=== PATIENT | male | born 1955 ===

== ENCOUNTER 2018-09-07 15:53 | Inpatient (IN) ==
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
[2018-09-07 16:41] LABS: Baso % (Auto) 0.6 % (0.0-2.0); Eos % (Auto) 0.1 % (0.0-4.0); Hematocrit 44.9 % (39.0-51.0); Hemoglobin 16.3 gm/dL (13.0-17.0); Lymph # (Auto) 0.5 th/mm3 (1.0-4.8); Lymph % (Auto) 5.9 % (9.0-44.0); Mean Corpuscular Hemoglobin 33.2 pg (27.0-34.0); Mean Corpuscular Volume 91.1 fL (80.0-100.0); Mean Platelet Volume 8.1 fL (7.0-11.0); Mono # (Auto) 0.5 th/mm3 (0.0-0.9); Mono % (Auto) 6.7 % (0.0-8.0); Neut # (Auto) 6.9 th/mm3 (1.8-7.7); Neut % (Auto) 86.7 % (16.0-70.0); Platelet Count 180 th/mm3 (150-450); Red Blood Count 4.92 mil/mm3 (4.50-5.90); Red Cell Distribution Width 13.2 % (11.6-17.2); White Blood Count 7.9 th/mm3 (4.0-11.0)
[2018-09-07 16:46] LABS: Mean Corpuscular HGB Conc 36.4 % (32.0-36.0)
[2018-09-07 16:56] LABS: Activated Partial Thrombo Time 22.6 sec (23.4-31.7); INR 1.1 Ratio; Prothrombin Time 10.8 sec (9.8-11.6)
[2018-09-07] MEDS ORDERED: Post-op Orders (for Pharmacy) OTHER ONE (17:34)
[2018-09-07] MEDS ORDERED: Naloxone Inj 0.4 MG/ML Vial IV.PUSH PRN (17:34)
[2018-09-07] MEDS ORDERED: Bisacodyl 10 MG Supp RECTAL PRN (17:34)
[2018-09-07] MEDS ORDERED: HYDROmorphone PF Inj 1 MG/ML Ampul IV.PUSH PRN (17:34)
[2018-09-07] MEDS ORDERED: *Meperidine Inj 25 MG/ML Vial PERIprocedural Use ONLY ONE (17:36)
[2018-09-07] MEDS ORDERED: Morphine Inj 4 MG/ML Vial ONE (17:43)
[2018-09-07] MEDS ORDERED: fentaNYL Citrate Inj 100 MCG/2 ML Ampul ONE (17:43)
[2018-09-07] MEDS ORDERED: Morphine Inj 4 MG/ML Vial IV.PUSH ONE (18:03)
[2018-09-07] MEDS ORDERED: Ciprofloxacin 400 MG/200 ML 400 MG/200 ML PIGGYBACK IV.SIG ONE (18:15)
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
[2018-09-07] MEDS: Sod Chloride 0.9% Inj 1,000 ML IV.CONT SCH (18:31)
[2018-09-07] MEDS ORDERED: Influenza (Quadrivalent) Vaccine 0.5 ML Syringe IM ONE (18:45)
[2018-09-07] MEDS: Famotidine 20 MG Tablet PO SCH (22:06)
[2018-09-07] MEDS: Senna/Docusate Sodium 8.6/50 MG Tablet PO SCH (22:06)
[2018-09-08] MEDS: ceFAZolin Inj 1,000 MG in Sodium Chlor 0.9% Inj 100 ML IV.SIG SCH ×2 (03:20)
[2018-09-08] MEDS: Sod Chloride 0.9% Inj 1,000 ML IV.CONT SCH ×2 (03:21→13:09)
[2018-09-08] MEDS ORDERED: ceFAZolin 1 GM Premix Inj 1 GM/50 ML PIGGYBACK IV.SIG SCH (04:00)
[2018-09-08] MEDS ORDERED: Acetaminophen 325 MG Tablet PO PRN (06:02)
[2018-09-08 06:22] LABS: Baso % (Auto) 0.3 % (0.0-2.0); Eos % (Auto) 0.3 % (0.0-4.0); Hematocrit 42.4 % (39.0-51.0); Hemoglobin 14.7 gm/dL (13.0-17.0); Lymph # (Auto) 0.8 th/mm3 (1.0-4.8); Lymph % (Auto) 9.2 % (9.0-44.0); Mean Corpuscular HGB Conc 34.6 % (32.0-36.0); Mean Corpuscular Hemoglobin 31.5 pg (27.0-34.0); Mean Corpuscular Volume 91.1 fL (80.0-100.0); Mean Platelet Volume 8.1 fL (7.0-11.0); Mono # (Auto) 0.7 th/mm3 (0.0-0.9); Mono % (Auto) 8.5 % (0.0-8.0); Neut # (Auto) 6.8 th/mm3 (1.8-7.7); Neut % (Auto) 81.7 % (16.0-70.0); Platelet Count 157 th/mm3 (150-450); Red Blood Count 4.65 mil/mm3 (4.50-5.90); Red Cell Distribution Width 13.2 % (11.6-17.2); White Blood Count 8.3 th/mm3 (4.0-11.0)
[2018-09-08 06:35] LABS: Calcium 8.1 mg/dL (8.5-10.1); Carbon Dioxide 26.8 meq/L (21.0-32.0); Potassium 3.9 meq/L (3.5-5.1)
[2018-09-08] MEDS ORDERED: Venlafaxine XR 75 MG Capsule PO SCH (09:00)
[2018-09-08] MEDS ORDERED: levETIRAcetam 500 MG Tablet PO SCH (09:00)
[2018-09-08] MEDS: Senna/Docusate Sodium 8.6/50 MG Tablet PO SCH ×2 (09:02→20:52)
[2018-09-08] MEDS: Famotidine 20 MG Tablet PO SCH ×2 (09:02→20:49)
[2018-09-08] MEDS: ceFAZolin 1 GM Premix Inj 1 GM/50 ML PIGGYBACK IV.SIG SCH ×2 (09:08→17:07)
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
[2018-09-08] MEDS: Enoxaparin Inj 40 MG/0.4 ML Syringe SQ SCH (18:36)
[2018-09-09 04:25] LABS: Baso % (Auto) 0.3 % (0.0-2.0); Eos % (Auto) 0.4 % (0.0-4.0); Hematocrit 42.5 % (39.0-51.0); Hemoglobin 15.2 gm/dL (13.0-17.0); Lymph # (Auto) 0.8 th/mm3 (1.0-4.8); Lymph % (Auto) 10.1 % (9.0-44.0); Mean Corpuscular HGB Conc 35.7 % (32.0-36.0); Mean Corpuscular Hemoglobin 32.2 pg (27.0-34.0); Mean Platelet Volume 7.8 fL (7.0-11.0); Mono # (Auto) 0.6 th/mm3 (0.0-0.9); Mono % (Auto) 7.9 % (0.0-8.0); Neut # (Auto) 6.3 th/mm3 (1.8-7.7); Neut % (Auto) 81.3 % (16.0-70.0); Platelet Count 139 th/mm3 (150-450); Red Blood Count 4.72 mil/mm3 (4.50-5.90); Red Cell Distribution Width 13.1 % (11.6-17.2); White Blood Count 7.7 th/mm3 (4.0-11.0)
[2018-09-09 04:51] LABS: Anion Gap 7 meq/L (5-15); Blood Urea Nitrogen 7 mg/dL (7-18); Calcium 8.5 mg/dL (8.5-10.1); Carbon Dioxide 26.6 meq/L (21.0-32.0); Chloride 103 meq/L (98-107); Glomerular Filtration Rate Greater Than 89 mL/min (>89); Glucose,Random 137 mg/dL (74-106); Potassium 3.4 meq/L (3.5-5.1); Sodium 137 meq/L (136-145)
[2018-09-09 08:44] VITALS: BP 185/109; PULSE 83; RESP 18; TEMP 97.9
[2018-09-09] MEDS: Famotidine 20 MG Tablet PO SCH (08:53)
[2018-09-09] MEDS: Enoxaparin Inj 40 MG/0.4 ML Syringe SQ SCH (08:53)
[2018-09-09] MEDS: Senna/Docusate Sodium 8.6/50 MG Tablet PO SCH (08:53)
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
[2018-09-09 12:37] VITALS: O2SAT 97
[2018-09-09] MEDS ORDERED: levETIRAcetam 500 MG Tablet PO SCH (21:00)
[2018-09-09] MEDS ORDERED: Venlafaxine XR 75 MG Capsule PO SCH (21:00)
== END 2018-09-09 11:41 | DRG 357 ==
LOC: NEPI 15:53 → EDBD 17:23 → NEDA 17:23 → N07 18:20
PROVIDERS: ADMIT Surgery; ATTEND Surgery
CPT/HCPCS: 71010; 71045; 80048; 80307; 85025; 85610; 85730; 86850; 86900; 86901; 88300; 90471; 90658; 90686; 90774; 90784; 94150; 96374; 97162; 99285; 99291; C8952; G0008; G0390; J0690; J1650; J2175; J2270; J3010; J7030; Q2038

== ENCOUNTER 2018-09-09 11:55 | Inpatient (IN) ==
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
[2018-09-09] MEDS: Metoprolol Tartrate 25 MG Tablet PO SCH (20:34)
[2018-09-09] MEDS: Senna/Docusate Sodium 8.6/50 MG Tablet PO SCH (20:35)
[2018-09-10 07:43] LABS: Calcium 9.7 mg/dL (8.5-10.1); Carbon Dioxide 29.6 meq/L (21.0-32.0); Potassium 3.7 meq/L (3.5-5.1)
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
[2018-09-10] MEDS: Metoprolol Tartrate 25 MG Tablet PO SCH ×2 (08:27→21:18)
[2018-09-10] MEDS: amLODIPine 5 MG Tablet PO SCH (08:27)
[2018-09-10] MEDS: Senna/Docusate Sodium 8.6/50 MG Tablet PO SCH ×2 (09:10→21:18)
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
[2018-09-10] MEDS: levETIRAcetam 500 MG Tablet PO SCH ×2 (12:00→21:18)
[2018-09-10] MEDS: Venlafaxine XR 75 MG Capsule PO SCH (12:00)
--- NOTE | 2018-09-10 20:28 | ECG ---
Date Performed: 09/10/2018 Time Performed: 09:26:17 PTAGE: 63 years EKG: Sinus rhythm WITH OCCASIONAL SUPRAVENTRICULAR PREMATURE COMPLEXES POSSIBLE INFERIOR MYOCARDIAL INFARCTION , PROBA RASHAD OLD BORDERLINE ECG NO PREVIOUS TRACING DOCTOR: Sukhjinder Aguilera Interpretating Date/Time 09/10/2018 20:25:32
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
[2018-09-11] MEDS: Senna/Docusate Sodium 8.6/50 MG Tablet PO SCH ×2 (08:45→20:28)
[2018-09-11] MEDS: Acetaminophen 325 MG Tablet PO PRN ×3 (08:45→21:29)
[2018-09-11] MEDS: levETIRAcetam 500 MG Tablet PO SCH ×2 (08:45→20:28)
[2018-09-11] MEDS: Venlafaxine XR 75 MG Capsule PO SCH ×2 (08:45→20:28)
[2018-09-11] MEDS: amLODIPine 5 MG Tablet PO SCH (11:26)
--- NOTE | 2018-09-11 18:35 | P.PNPSY ---
Subjective Remarks: Reviewed electronic medical records and discussed case with staff. Follow-up was conducted in the patient's room with ARCHIE Pendleton present. His nurse reports that he has been anxious and guarded as well as a bit labile today. When asked how he is feeling the patient's reports that he is "doing great". He states that he is sleeping and eating well and that his mood is "pretty good". He denies side effects from the medication. His is at the bedside is very verbally aggressive with his provider questioning why she has not been contacted for information and demanding that his medications be changed to the evening. After some discussion I have agreed to move his medications to before bedtime per her request. This seemed to mollify her somewhat. She is requesting to be contacted by the attending psychiatrist via phone on Thursday. Mental Status Examination Appearance: Appropriate Consciousness: Alert Orientation: Person, Place, Date/Time Motor Activity: Normal gait Speech: Unremarkable Language: Adequate Fund of Knowledge: Inadequate Attention and Concentration: Easily distracted Memory: Impaired Mood: Sad, Other (Dysphoric) Affect: Sad, Other (Tearful) Thought Process & Associations: Intact, Linear Thought Content: Appropriate Hallucination Type: None Delusion Type: None Suicidal Ideation: No (Denies but unreliable to contract for safety at this time ) Suicidal Plan: No Suicidal Intention: No Homicidal Ideation: No Homicidal Plan: No Homicidal Intention: No Insight: Fair Judgment: Impulsive Assessment and Plan - Assessment (1) Major depressive disorder Code(s): F32.9 - Major depressive disorder, single episode, unspecified Status : Acute - Plan Plan: Patient will be reevaluated by the attending psychiatrist. Continue with current treatment plan. Justification for Continued Inpatient Stay: Moving this patient to a less restrictive environment would likely result in decompensation.
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
[2018-09-12] MEDS: Senna/Docusate Sodium 8.6/50 MG Tablet PO SCH ×2 (08:30→21:44)
[2018-09-12] MEDS: Acetaminophen 325 MG Tablet PO PRN (08:43)
[2018-09-12] MEDS: levETIRAcetam 500 MG Tablet PO SCH ×2 (08:53→21:44)
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
--- NOTE | 2018-09-12 20:01 | P.PNPSY ---
Subjective Remarks: Reviewed electronic medical records and discussed case with staff. Follow-up was conducted in patient's room with ARCHIE Pendleton present. Patient's is present at bedside. Asked how he is feeling today he responds "great". States that he slept well and that he is "never had a problem meeting". His mood is euthymic. His nurse did report that earlier he had an episode where he was observed having tremors of his body however, he was alert throughout the incident and there was no postictal period nor incontinence. When asked what it occurred he attributed it to being in pain. No more such episodes were witnessed by the nurse. Mental Status Examination Appearance: Appropriate Consciousness: Alert Orientation: Person, Place, Date/Time Motor Activity: Normal gait Speech: Unremarkable Language: Adequate Fund of Knowledge: Inadequate Attention and Concentration: Easily distracted Memory: Impaired Mood: Sad, Other (Dysphoric) Affect: Sad, Other (Tearful) Thought Process & Associations: Intact, Linear Thought Content: Appropriate Hallucination Type: None Delusion Type: None Suicidal Ideation: No (Denies but unreliable to contract for safety at this time ) Suicidal Plan: No Suicidal Intention: No Homicidal Ideation: No Homicidal Plan: No Homicidal Intention: No Insight: Fair Judgment: Impulsive Assessment and Plan - Assessment (1) Major depressive disorder Code(s): F32.9 - Major depressive disorder, single episode, unspecified Status : Acute - Plan Plan: Patient will be reevaluated by the attending psychiatrist. Continue with current treatment plan. Justification for Continued Inpatient Stay: Moving this patient to a less restrictive environment would likely result in decompensation.
[2018-09-12] MEDS: Venlafaxine XR 75 MG Capsule PO SCH (21:44)
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
[2018-09-13] MEDS: Senna/Docusate Sodium 8.6/50 MG Tablet PO SCH ×2 (08:33→22:08)
[2018-09-13] MEDS: levETIRAcetam 500 MG Tablet PO SCH ×2 (08:33→22:09)
[2018-09-13] MEDS: Acetaminophen 325 MG Tablet PO PRN ×2 (08:33→16:23)
[2018-09-13] MEDS: Aluminum/Magnesium/Simethacone Susp 30 ML UDC PO PRN (08:40)
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
[2018-09-13] MEDS: Venlafaxine XR 75 MG Capsule PO SCH (22:08)
[2018-09-14] MEDS: levETIRAcetam 500 MG Tablet PO SCH ×2 (08:20→21:45)
[2018-09-14] MEDS: Senna/Docusate Sodium 8.6/50 MG Tablet PO SCH ×2 (08:20→21:45)
[2018-09-14 09:04] LABS: Baso % (Auto) 0.6 % (0.0-2.0); Eos # (Auto) 0.2 th/mm3 (0.0-0.4); Hematocrit 48.8 % (39.0-51.0); Hemoglobin 16.8 gm/dL (13.0-17.0); Lymph # (Auto) 1.4 th/mm3 (1.0-4.8); Lymph % (Auto) 23.2 % (9.0-44.0); Mean Corpuscular HGB Conc 34.3 % (32.0-36.0); Mean Corpuscular Hemoglobin 31.8 pg (27.0-34.0); Mean Corpuscular Volume 92.7 fL (80.0-100.0); Mean Platelet Volume 7.7 fL (7.0-11.0); Mono # (Auto) 0.5 th/mm3 (0.0-0.9); Neut # (Auto) 3.9 th/mm3 (1.8-7.7); Neut % (Auto) 65.2 % (16.0-70.0); Platelet Count 216 th/mm3 (150-450); Red Blood Count 5.27 mil/mm3 (4.50-5.90); Red Cell Distribution Width 13.3 % (11.6-17.2)
[2018-09-14 09:18] LABS: Calcium 9.4 mg/dL (8.5-10.1); Carbon Dioxide 27.9 meq/L (21.0-32.0); Potassium 3.9 meq/L (3.5-5.1)
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
--- NOTE | 2018-09-14 11:23 | MB ---
cc: Nazario Paulson MD DATE: 09/14/2018 CHIEF COMPLAINT: Attempted suicide, blank stares, dementia, seizures. Keppra. An 8 Hz, 60 microvolt symmetric posterior rhythm is seen. Some diffuse 7 Hz slowing is occasionally seen. A right foot twitch is seen, but does not correlate with any seizure activity. Overall, recording is synchronous and symmetric. Left hand twitch is seen, but does not correlate with any seizure activity. He appears to fall asleep with a slight body twitch. A vertex sharp wave is noted. Stage II sleep is reached, although just briefly and some slight twitches are seen in the feet, but do not correlate with any seizure activity. Then he is in a full stage II sleep by Epoch 67. Photic stimulation performed without significant posterior driving. Hyperventilation not performed. IMPRESSION: Normal awake and sleep electroencephalogram. No evidence for a focal or diffuse abnormality. A lot of twitching is seen of his feet, but they do not correlate with any seizure activity. Most of this recording is during sleep state clinically and he does reach normal stage II sleep. Nazario Paulson MD DJM/sv , 10:59 AM , 11:05 AM
[2018-09-14] MEDS: Aluminum/Magnesium/Simethacone Susp 30 ML UDC PO PRN (12:41)
[2018-09-14] MEDS: Acetaminophen 325 MG Tablet PO PRN ×2 (12:42→17:46)
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
[2018-09-14] MEDS: Venlafaxine XR 75 MG Capsule PO SCH (21:45)
[2018-09-15] MEDS: Senna/Docusate Sodium 8.6/50 MG Tablet PO SCH ×2 (08:12→20:42)
[2018-09-15] MEDS: levETIRAcetam 500 MG Tablet PO SCH ×2 (08:12→20:42)
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
--- NOTE | 2018-09-15 15:28 | P.TTN ---
- Patient Problems Problems: 1. Discharge planning 2. Medication compliance 3. Knowledge deficit 4. Lack of coping skills - Progress Toward Goals Provider Present: Dr. Lee Garcia Provider Input: 09/15/2018; patient's medication has recently been adjusted to address his mood/SI. Nurse(s) Present: RN Nurse Input: 09/15/2018; Patient is eating meals and taking his medication, continues to express some depression Psychiatric Counselors Present: Luma Raymundo [place] Psychiatric Therapist Input: 09/15/2018; counselor and doctor meet with patient' s family to discuss appropriate dc plan, treatment and medication Group Spec/RT/OT/HOLLIS Present: TELMA Galaviz Group Spec/RT/OT/HOLLIS Input: 09/15/2018; patient has been physically and mentally unable to participate with groups and activities - Documentation Teaching Recipient: Patient
[2018-09-15] MEDS: Venlafaxine XR 75 MG Capsule PO SCH (20:41)
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
[2018-09-16] MEDS: levETIRAcetam 500 MG Tablet PO SCH ×2 (08:15→21:00)
[2018-09-16] MEDS: Senna/Docusate Sodium 8.6/50 MG Tablet PO SCH ×2 (08:15→21:00)
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
[2018-09-16] MEDS: Venlafaxine XR 75 MG Capsule PO SCH (21:00)
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
[2018-09-17] MEDS: Senna/Docusate Sodium 8.6/50 MG Tablet PO SCH ×2 (08:33→20:47)
[2018-09-17] MEDS: levETIRAcetam 500 MG Tablet PO SCH ×2 (08:33→20:43)
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
[2018-09-17] MEDS: Venlafaxine XR 75 MG Capsule PO SCH (20:43)
[2018-09-18] MEDS: Senna/Docusate Sodium 8.6/50 MG Tablet PO SCH ×2 (09:03→21:36)
[2018-09-18] MEDS: levETIRAcetam 500 MG Tablet PO SCH ×2 (09:03→21:34)
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
[2018-09-18] MEDS: Venlafaxine XR 75 MG Capsule PO SCH (21:36)
[2018-09-19] MEDS: Senna/Docusate Sodium 8.6/50 MG Tablet PO SCH ×2 (08:13→21:44)
[2018-09-19] MEDS: levETIRAcetam 500 MG Tablet PO SCH ×2 (08:13→21:44)
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
[2018-09-19] MEDS: Clotrimazole 1% Cream 15 GM Tube TOPICAL SCH (21:43)
[2018-09-19] MEDS: Venlafaxine XR 75 MG Capsule PO SCH (22:28)
[2018-09-19] MEDS: Acetaminophen 325 MG Tablet PO PRN (22:32)
[2018-09-20 05:37] VITALS: BP 98/54; PULSE 59; RESP 17; TEMP 98.1; O2SAT 96
[2018-09-20] MEDS: Clotrimazole 1% Cream 15 GM Tube TOPICAL SCH (09:07)
[2018-09-20] MEDS: levETIRAcetam 500 MG Tablet PO SCH (09:07)
[2018-09-20] MEDS: Senna/Docusate Sodium 8.6/50 MG Tablet PO SCH (09:07)
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
== END 2018-09-20 15:00 | disposition home or self-care (01) | DRG 881 ==
LOC: H4EA 11:55
PROVIDERS: ADMIT Student in an Organized Health Care Education/Training Program; ATTEND Student in an Organized Health Care Education/Training Program
DX: R32 Unspecified urinary incontinence; F03.90 Unspecified dementia, unspecified severity, without behavioral disturbance, psychotic disturbance, mood disturbance, and anxiety; F32.9 Major depressive disorder, single episode, unspecified; S61.511D Laceration without foreign body of right wrist, subsequent encounter; Z87.891 Personal history of nicotine dependence; I10 Essential (primary) hypertension; G40.909 Epilepsy, unspecified, not intractable, without status epilepticus; X78.1XXD Intentional self-harm by knife, subsequent encounter; F12.90 Cannabis use, unspecified, uncomplicated; R00.0 Tachycardia, unspecified; S61.512D Laceration without foreign body of left wrist, subsequent encounter; E87.6 Hypokalemia; S31.61 Laceration without foreign body of abdominal wall with penetration into peritoneal cavity; Z62.810 Personal history of physical and sexual abuse in childhood
CPT/HCPCS: 80048; 85025; 93005; 95819; J2060; Q0163